=== PATIENT | female | born 2000 | race Caucasian/White ===

== ENCOUNTER 2020-04-23 12:20 | Outpatient (CLI) | payer SELFPAY ==
--- NOTE | 2020-04-23 13:44 | RAD ---
LEFT ANKLE 3 VIEWS: Date: 04/23/2020 HISTORY: Injury, left ankle pain. FINDINGS/IMPRESSION: The ankle mortise is maintained. No acute fracture or dislocation is seen. There is soft tissue swell ing. POS: AH
--- NOTE | 2020-04-23 13:45 | RAD ---
LEFT FOOT 3 VIEWS: Date: 04/23/2020 HISTORY: Injury, left foot pain. FINDINGS/IMPRESSION: No acute fracture or dislocation identified. POS: AH
== END 2020-04-23 12:21 | disposition home or self-care (01) ==
LOC: MADRAD 12:20
PROVIDERS: ATTEND Family Medicine
DX: Z03.89 Encounter for observation for other suspected diseases and conditions ruled out (principal)